=== PATIENT | male | born 1995 | race Caucasian/White ===

== ENCOUNTER 2021-02-04 14:59 | Emergency (ER) | payer OTHER ==
[~2021-02-04 14:59] MED LIST: ULTRAM50 MG PO; VIBRAMYCIN100 MG PO
[2021-02-04] MEDS ORDERED: BACTRIM DS TAB1 EACH PO (18:51)
[2021-02-04] MEDS ORDERED: IBUPROFEN800 MG PO (18:51)
[2021-02-04] MEDS ORDERED: CEPHALEXIN500 MG PO (18:51)
== END 2021-02-04 17:12 | disposition home or self-care (01) ==
LOC: ER1 14:59
DX: L02.414 Cutaneous abscess of left upper limb (principal); F17.290 Nicotine dependence, other tobacco product, uncomplicated
CPT/HCPCS: 10060; 99283